=== PATIENT | male | born 1970 | race Two or more races ===

== ENCOUNTER 2025-06-25 07:29 | Outpatient (CLI) | payer OTHER | END 2025-06-25 07:30 | disposition home or self-care (01) | LOC: NUCLEAR 07:29 | PROVIDERS: ATTEND Internal Medicine Endocrinology, Diabetes & Metabolism | DX: E05.00 Thyrotoxicosis with diffuse goiter without thyrotoxic crisis or storm (principal) ==

== ENCOUNTER 2025-06-26 07:06 | Outpatient (CLI) | payer OTHER | END 2025-06-26 07:07 | disposition home or self-care (01) | LOC: NUCLEAR 07:06 | DX: E05.00 Thyrotoxicosis with diffuse goiter without thyrotoxic crisis or storm (principal) ==